=== PATIENT | male | born 1965 ===

== ENCOUNTER 2023-03-08 09:54 | Emergency (ER) | payer OTHER ==
[~2023-03-08] VITALS: Ht 167.6 cm; Wt 77.1 kg
[2023-03-08] MEDS ORDERED: CEPHALEXIN500 M1 PO (11:43)
== END 2023-03-08 12:00 | disposition home or self-care (01) ==
LOC: ED 09:54
DX: S61.011A Laceration without foreign body of right thumb without damage to nail, initial encounter (principal); E11.9 Type 2 diabetes mellitus without complications; Z98.890 Other specified postprocedural states; W26.9XXA Contact with unspecified sharp object(s), initial encounter; Y93.89 Activity, other specified; Y92.89 Other specified places as the place of occurrence of the external cause; Y99.0 Civilian activity done for income or pay